=== PATIENT | female | born 1985 | race Caucasian/White ===

== ENCOUNTER 2019-10-06 20:19 | Emergency (ER) | payer MEDICAID, OTHER ==
[~2019-10-06] VITALS: Ht 157.5 cm; Wt 82.0 kg
[2019-10-06] MEDS ORDERED: LIDOCAINE HCL 1% 20ML VIAL (Pyxis) INJ INFIL ONE (22:30)
[2019-10-06 23:50] VITALS: BP 125/80
== END 2019-10-06 23:50 | disposition home or self-care (01) ==
LOC: ER 20:19
DX: L03.032 Cellulitis of left toe (principal); L60.0 Ingrowing nail
CPT/HCPCS: 11730; 99283; J3490; Z7610